=== PATIENT | female | born 1985 | race Hispanic/Latino ===

== ENCOUNTER 2019-02-09 18:07 | Emergency (ER) | payer SELFPAY ==
[2019-02-09 20:00] LABS: #Eosinphils 0.1 thou/uL (0.0-0.7); #Lymphocytes 3.3 thou/uL (1.20-3.40); #Monocytes 0.6 thou/uL (0.11-0.59); %Basophils 0.4 % (0.0-1.0); %Eosinophils 1.2 % (0.0-10.0); %Lymphocytes 27.4 % (21.0-51.0); %Monocytes 5.2 % (0.0-10.0); %Neutrophils 65.9 % (42.0-75.0); Mean Corpuscular HGB CONC 34.5 g/dL (32.0-36.0); Mean Corpuscular Hemoglobin 29.9 pg (27.0-31.0); Mean Corpuscular Volume 86.5 fL (78.0-98.0); Mean Platelet Volume 8.2 fL (7.4-10.4); Platelet Count 250 thou/uL (130-400); Red Blood Cell (RBC) Count 5.34 mill/uL (4.20-5.40); White Blood Cell (WBC) Count 12.1 thou/uL (4.8-10.8)
[2019-02-09 20:07] LABS: Bilirubin Negative (Negative); Blood, Urine Negative (Negative); Clarity Clear (Clear); Glucose, Urine (Dipstick) 500 mg/dL (Negative); Leukocyte Negative Leu/uL (Negative); Nitrite Negative (Negative); Protein, Urine (Dipstick) 10 mg/dL (Neg-Trace); Urobilinogen Normal mg/dL (Less than 2)
[2019-02-09 20:15] LABS: ALT (SGPT) 28 U/L (8-55); AST (SGOT) 12 U/L (5-34); Albumin 4.4 g/dL (3.5-5.0); Alkaline Phosphatase 62 U/L (40-110); Anion Gap 12 mmol/L (10-20); BUN (Urea Nitrogen) 9 mg/dL (7.0-18.7); Bilirubin, Total 1.5 mg/dL (0.2-1.2); Calc. Creatinine Clearance 0 mL/min (70-130); Calcium 9.4 mg/dL (7.8-10.44); Carbon Dioxide 23 mmol/L (22-29); Chloride 108 mmol/L (98-107); Estimated GFR-MDRD Greater than 90; Globulin 2.8 g/dL (2.4-3.5); Glucose 167 mg/dL (70-105); Potassium 3.5 mmol/L (3.5-5.1); Protein, Total 7.2 g/dL (6.0-8.3); Sodium 139 mmol/L (136-145)
--- NOTE | 2019-02-09 21:36 | ULT ---
EXAM: Pelvic ultrasound HISTORY: Positive test. COMPARISON: None TECHNIQUE: Multiple grayscale and color Doppler images were obtained in a transabdominal and transvag inal pelvic ultrasound. Spectral analysis of the Doppler waveforms of the ovaries were performed. FINDINGS: CERVIX: Multiple nabothian cysts in the cervix. UTERUS: Normal in size without focal abnormality. No intrauterine is seen. ENDOMETRIAL STRIPE: 15 mm. No free fluid is seen in the pelvis. RIGHT OVARY: Normal flow without focal mass. LEFT OVARY: Normal flow without focal mass. IMPRESSION: No evidence of intrauterine or ectopic .
[2019-02-09 22:32] LABS: Bilirubin Negative (Negative); Blood, Urine Negative (Negative); Clarity Clear (Clear); Glucose, Urine (Dipstick) 30 mg/dL (Negative); Leukocyte Negative Leu/uL (Negative); Nitrite Negative (Negative); Protein, Urine (Dipstick) 10 mg/dL (Neg-Trace); Urobilinogen Normal mg/dL (Less than 2)
[2019-02-10 21:21] LABS: Chlamydia by PCR Not Detected (NotDetected); GC by PCR Not Detected (NotDetected)
== END 2019-02-09 22:17 | disposition home or self-care (01) ==
LOC: ERS 18:07
DX: O20.0 Threatened abortion (principal); Z3A.13 13 weeks gestation of pregnancy
CPT/HCPCS: 36415; 76856; 80053; 81003; 84702; 85025; 86900; 86901; 87480; 87491; 87510; 87591; 87660

== ENCOUNTER → 2019-05-27 | Day surgery (SDC) | payer OTHER ==
[~2019-05-27] MED LIST: FLU VACC QS2019-20(6MOS UP)/PF 60 MCG/0.5 ML SYRINGE IM ONE; hydrALAZINE 20 MG/ML VIAL SLOW IVP PRN
[2019-05-27 02:09] VITALS: BP 120/75; TEMP 98.2; BMI 36.8
[2019-05-27 02:47] LABS: #Basophils 0.1 thou/uL (0.0-0.2); #Eosinphils 0.2 thou/uL (0.0-0.7); #Lymphocytes 3.3 thou/uL (1.20-3.40); #Monocytes 0.7 thou/uL (0.11-0.59); #Neutrophils 5.8 thou/uL (1.40-6.50); %Basophils 0.9 % (0.0-1.0); %Eosinophils 1.7 % (0.0-10.0); %Lymphocytes 32.5 % (21.0-51.0); %Neutrophils 57.9 % (42.0-75.0); Mean Corpuscular HGB CONC 36.2 g/dL (32.0-36.0); Mean Corpuscular Hemoglobin 32.5 pg (27.0-31.0); Mean Corpuscular Volume 89.8 fL (78.0-98.0); Mean Platelet Volume 8.1 fL (7.4-10.4); Platelet Count 164 thou/uL (130-400); RBC Distribution Width 13.1 % (11.5-14.5); Red Blood Cell (RBC) Count 3.99 mill/uL (4.20-5.40); White Blood Cell (WBC) Count 10.1 thou/uL (4.8-10.8)
[2019-05-27 03:08] LABS: ALT (SGPT) 21 U/L (8-55); AST (SGOT) 11 U/L (5-34); Albumin 3.4 g/dL (3.5-5.0); Alkaline Phosphatase 49 U/L (40-110); Anion Gap 11 mmol/L (10-20); BUN (Urea Nitrogen) 9 mg/dL (7.0-18.7); Bilirubin, Total 0.8 mg/dL (0.2-1.2); Calc. Creatinine Clearance 187 mL/min (70-130); Calcium 8.9 mg/dL (7.8-10.44); Carbon Dioxide 24 mmol/L (22-29); Chloride 109 mmol/L (98-107); Estimated GFR-MDRD Greater than 90; Globulin 2.7 g/dL (2.4-3.5); Glucose 101 mg/dL (70-105); Potassium 3.8 mmol/L (3.5-5.1); Protein, Total 6.1 g/dL (6.0-8.3); Sodium 140 mmol/L (136-145)
--- NOTE | 2019-05-27 03:15 | PDOC.EVN ---
Event Note - Event Note Event Note: labs wnl
--- NOTE | 2019-05-27 03:21 | PDOC.EVN ---
Event Note - Event Note Event Note: Verbal from tech: EDWAR GREEN for outpatient care. I have seen and evaluated the patient at bedside.
--- NOTE | 2019-05-27 07:33 | HP ---
TIME: 0219 hours. LOCATION: Labor and Delivery triage. CHIEF COMPLAINT: A 20-week with nausea and mild abdominal pain. HISTORY OF PRESENT ILLNESS: This patient is a patient of Dr. Herndon. The patient is a 33-year-old G1 with type 2 diabetes (Class B), who takes NovoLog and Levemir, who also has hypothyroidism, on Synthroid, who is 20 weeks and 1-day . Her EDC is October 12. She presents with mild chad-umbilical discomfort, but denies fever, vaginal bleeding, or leakage of fluid. She states that her has a "stomach infection" and has had nausea and vomiting as well. She denies any recent trauma or travel. REVIEW OF SYSTEMS: Complete review of systems was checked and is otherwise negative unless specified in the HPI. PAST MEDICAL HISTORY: Significant for type 2 diabetes and hypothyroidism. MEDICATIONS: 1. Levemir. 2. NovoLog. 3. Synthroid. PAST SURGICAL HISTORY: None. ALLERGIES: THE PATIENT DOES NOT HAVE ANY ALLERGIES STATED. SOCIAL HISTORY: Negative x3. PHYSICAL EXAMINATION: VITAL SIGNS: Her blood pressure is 120/75, pulse is 84, 100% O2 saturations on room air, and temperature is 98.2. Her BMI is 36.8. GENERAL: She is in no acute distress. ABDOMEN: Soft and nontender and it is nonsurgical. Doppler heart tones are in the 120s to 130s. Interventions ordered. I have ordered a right upper quadrant ultrasound, CBC, and CMP. ASSESSMENT: This is a 33-year-old G1 with diabetes and hypothyroidism with nonspecific abdominal discomfort. My index of suspicion for cholelithiasis or appendicitis is low at this time as the patient does not appear clinically ill. Nonetheless, I have ordered a right upper quadrant ultrasound to rule out any gallbladder issues and laboratory data to look for any overt abnormalities. PLAN: 1. Await tests as described. 2. No evidence of complication at this time. 3. Do not suspect acute surgical issue at this time. 4. Await test. Job ID: [id number] [facility]
--- NOTE | 2019-05-27 08:02 | ULT ---
Exam: Right upper quadrant ultrasound: HISTORY: Abdominal pain in a patient with 21 week . COMPARISON: None FINDINGS: Liver: Borderline enlarged measuring 18 cm in craniocaudal dimensions. Gallbladder: No evidence of gallbladder calculi, gallbladder wall thickening, or pericholecystic flui d. Common bile duct: The common duct is normal in caliber measuring 0.5 cm in diameter. Pancreas: Limited visualized portions of the pancreas demonstrate a normal sonographic appearance. Right kidney: Right kidney demonstrates a normal sonographic appearance. The right kidney measures 1 1.9 cm in length. IVC: The visualized IVC demonstrates a normal sonographic appearance. IMPRESSION: 1. Enlargement of liver in craniocaudal dimensions. 2. No gallbladder calculi are seen, and the common duct is normal in caliber.
== END ==
LOC: L&D/OP 01:19
PROVIDERS: ATTEND Family Medicine
DX: O21.2 Late vomiting of pregnancy (principal); O99.89 Other specified diseases and conditions complicating pregnancy, childbirth and the puerperium; R10.33 Periumbilical pain; O99.282 Endocrine, nutritional and metabolic diseases complicating pregnancy, second trimester; E03.9 Hypothyroidism, unspecified; O24.112 Pre-existing type 2 diabetes mellitus, in pregnancy, second trimester; E11.8 Type 2 diabetes mellitus with unspecified complications; Z3A.20 20 weeks gestation of pregnancy; Z79.4 Long term (current) use of insulin; Z79.899 Other long term (current) drug therapy
CPT/HCPCS: 36415; 76705; 80053; 85025

== ENCOUNTER 2019-06-03 08:32 | Outpatient (CLI) | payer OTHER ==
--- NOTE | 2019-06-03 09:50 | ULT ---
OB ULTRASOUND: Date: 06/03/2019 HISTORY: Size and dates. FINDINGS: Real-time imaging of the pelvis shows a single, viable intrauterine , which is in a breech p resentation. Placenta is anterior. There is no evidence of previa. Amniotic fluid is adequate for thi s stage of . The amniotic fluid index is calculated at 13.6. Review of anatomy showed no abnormalities detected. Head, cerebellum, stomach, kidneys, cord in sertion, bladder, spine, extremities, 3 vessel cord, and cord insertion were all visualized. A 4 naseem fiona heart is somewhat difficult to visualize, but there does appear to be a 4 chamber heart present. heart rate is 150 bpm. measurements are as follows: BPD: 5.0 cm, 21 weeks/1 day HC: 18.2 cm, 20 weeks/5 days AC: 16.5 cm, 21 weeks/4 days FL: 3.5 cm, 21 weeks/1 day IMPRESSION: 1. Single, viable intrauterine in breech presentation. Overall measurements corresponding to a gestational age of 21 weeks and 1 day. Estimated date of delivery is 10/13/2019. 2. Placenta which is anterior in location and without evidence of previa. 3. Cervical canal length is somewhat difficult to assess, but is approximately 3.0 cm. POS: [facility]
== END 2019-06-03 08:33 | disposition home or self-care (01) ==
LOC: BICULT 08:32
PROVIDERS: ATTEND Family Medicine
DX: O24.112 Pre-existing type 2 diabetes mellitus, in pregnancy, second trimester (principal); E11.9 Type 2 diabetes mellitus without complications; O32.1XX0 Maternal care for breech presentation, not applicable or unspecified; Z3A.21 21 weeks gestation of pregnancy
CPT/HCPCS: 76805

== ENCOUNTER 2019-08-15 02:41 | Day surgery (SDC) | payer OTHER ==
[2019-08-15] MEDS ORDERED: hydrALAZINE 20 MG/ML VIAL SLOW IVP PRN (03:41)
[2019-08-15 04:46] LABS: Bacteria/HPF 1+ HPF (None Seen); Bilirubin Negative (Negative); Blood, Urine Negative (Negative); Clarity Extra Turbid (Clear); Glucose, Urine (Dipstick) Normal (Negative); Leukocyte 500 Leu/uL (Negative); Nitrite Negative (Negative); Protein, Urine (Dipstick) 30 mg/dL (Neg-Trace); Squamous Epithelial 21-50 HPF (0-3); Transitional Epithelial 0-3 HPF (None Seen); WBC/HPF Greater than 50 HPF (0-3)
--- NOTE | 2019-08-15 04:57 | CON ---
DATE OF CONSULTATION: 08/15/2019 PRIMARY OB: Seymour Herndon MD CHIEF COMPLAINT: Pelvic pain. HISTORY OF PRESENT ILLNESS: The patient is a 34-year-old G1, P0 female with an intrauterine at 31 weeks and 4 days, presenting to Labor and Delivery with complaints of pelvic pressure and pain and frequent urination. The patient reports that these symptoms occurred ever since she had a 3D ultrasound done and at a local ultrasound shop to get pictures for her baby shower. She reports that the tech used a lot of pressure down in her lower pelvis in an effort to get good pictures and doing so she feels as concern that her bladder was injured. She denies uterine contractions. She denies vaginal bleeding or leakage of fluid or change in her discharge. She reports urinary frequency. The patient reports that she was awoken at night from sleep because of the discomfort that she has been feeling. She notices it gets worse when she is trying to roll from one side to the other while in bed. She denies any worsening sensations with getting out of bed or walking or any other activities. The patient denies any symptoms prior to this appointment that she had. She denies fever, headache, chest pain, shortness of breath, nausea, vomiting, diarrhea, constipation, hip problems, knee problems, muscle weakness. She denies any new rashes. Again, vaginal bleeding, leakage of fluid. She does report urinary frequency. PAST MEDICAL HISTORY: Hypothyroidism and diabetes. PAST SURGICAL HISTORY: Negative. ALLERGIES: NO KNOWN DRUG ALLERGIES. MEDICATIONS: Levothyroxine and insulin. SOCIAL HISTORY: Denies drug, alcohol, tobacco use. OB LABS: Unavailable at time of dictation. REVIEW OF SYSTEMS: Per HPI. PHYSICAL EXAMINATION: VITAL SIGNS: Blood pressure 133/68, pulse of 107, respiratory rate 15, temperature 198.2. GENERAL: She appears to be in no acute distress. She is alert, oriented, cooperative, and pleasant to interact with. HEENT: Head, normocephalic and atraumatic. LUNGS: Clear to auscultation bilaterally. HEART: Has regular rate and rhythm. ABDOMEN: Gravid and soft. She has no tenderness to palpation in her upper abdomen or mid abdomen. She does have significant tenderness with elevation of the uterus down in her lower right pelvis and in her lower left, but worse in her right and some suprapubic tenderness to palpation. EXTREMITIES: Nontender, nonedematous. Vulva is without masses, lesions, or erythema. Cervix is closed and thick, but again reproducing her tenderness during the exam. DIAGNOSTIC STUDIES: heart tracing shows the fetus with a baseline in the 140s with moderate long-term variability, positive 15 x 15 accelerations, no decelerations. Monitoring was difficult due to maternal habitus. Urinalysis has been sent. The tocometer is not showing any evidence of contractions. ASSESSMENT AND PLAN: The patient is a 34-year-old G1, P0 female with an intrauterine at 31 weeks, likely experiencing musculoskeletal pains of . We discussed this to the mechanics of how she described the ultrasound procedure and by history and physical exam is consistent with ligament strain there on the right side of the uterus. We did senior living sales counselor that this pain may worsen before it gets better. Recommended Tylenol, heating pad to the area, the of the belly band or belt may help in reducing her discomfort at present. We discussed that may resolve within a few days or up to a few weeks given the baseline level of strain with the . Fetus has a category 1 tracing and reactive NST. No evidence of labor on the tocometer. Once the urinalysis is back, patient will be discharged home and has been given labor precautions. Her next appointment is in about 2 weeks. We have counseled her to call her doctor on Saturday to give him an update and see if she needs to come in sooner. Job ID: [id number]
[2019-08-15 05:13] LABS: Bilirubin Negative (Negative); Blood, Urine Negative (Negative); Clarity Turbid (Clear); Glucose, Urine (Dipstick) Normal (Negative); Leukocyte 500 Leu/uL (Negative); Nitrite Negative (Negative); Protein, Urine (Dipstick) Negative (Neg-Trace); RBC/HPF 0-3 HPF (0-3); Urobilinogen Normal mg/dL (Less than 2); WBC/HPF 21-50 HPF (0-3)
[2019-08-15 05:16] LABS: Bacteria/HPF 1+ HPF (None Seen)
== END 2019-08-15 05:30 | disposition home or self-care (01) ==
LOC: L&D/OP 02:41
PROVIDERS: ATTEND Family Medicine
DX: O99.89 Other specified diseases and conditions complicating pregnancy, childbirth and the puerperium (principal); R10.2 Pelvic and perineal pain; R35.0 Frequency of micturition; O24.313 Unspecified pre-existing diabetes mellitus in pregnancy, third trimester; E11.9 Type 2 diabetes mellitus without complications; O99.283 Endocrine, nutritional and metabolic diseases complicating pregnancy, third trimester; E03.9 Hypothyroidism, unspecified; Z3A.31 31 weeks gestation of pregnancy; Z79.4 Long term (current) use of insulin; Z79.899 Other long term (current) drug therapy
CPT/HCPCS: 81001

== ENCOUNTER 2019-08-28 23:48 | Day surgery (SDC) | payer OTHER ==
[2019-08-29] MEDS ORDERED: hydrALAZINE 20 MG/ML VIAL SLOW IVP PRN (01:26)
--- NOTE | 2019-08-29 03:48 | PDOC.FPROB ---
FMR OB H&P: HPI - History of Present Illness Chief Complaint: Decreased movement Indentification: 34 year old at 33.4 wks History of Present Illness: 34 year old at 33.4 wks presents with decreased movement. Patient states that she only noted 3 movements in last 2 hours. She tried drinking juice and moving around without any success. She has type II DM diagnosed a year ago. She was on metformin prior to , but she was started on levemir during for better BG control. Her BG has been at goal per patient. Patient also has history of hypothyroidism which is being treated. Patient denies N/V, chest pain, cough, congestion, shortness of breath, vaginal bleeding, vaginal discharge, LoF, or contractions. 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: Denies history of STD's or abnormal Pap smear - Surgical History Sx History: Denies - Social History Social History: Denies alcohol, tobacco, or drug use - Family History Family History: Denies significant family history FMR OB H&P: Medications - Current Home Medications: Medication Instructions Recorded Confirmed Type Insulin Aspart [Novolog] 7 unit SQ TID 05/27/19 08/29/19 History Insulin Detemir [Levemir] 10 units SQ BID 05/27/19 08/29/19 History Levothyroxine Sodium [Synthroid] 75 mcg PO DAILY 05/27/19 08/29/19 History Pnv No.95/Ferrous Fum/Folic AC 1 each PO DAILY 05/27/19 08/29/19 History [ Vitamin Tablet] Allergies/Adverse Reactions: Allergies Allergy/AdvReac Type Severity Reaction Status Date / Time No Known Allergies Allergy Verified 08/15/19 03:01 FMR OB H&P: ROS - Review of Systems General: denies: fever/chills, weight/appetite/sleep changes, night sweats Eyes: denies: vision changes, scotomas ENT: denies: nasal congestion, rhinorrhea, sore throat Cardiovascular: denies: chest pain, palpitation, edema Respiratory: denies: cough, congestion, shortness of breath Gastrointestinal: denies: abdominal pain, nausea, vomiting, diarrhea Genitourinary (Female): denies: dysuria, vaginal discharge, vaginal pain, vaginal bleeding Musculoskeletal: denies: pain, stiffness Neurologic: denies: numbness, syncope, seizures Integumentary: denies: itching, rash Psychological: denies: depression, anxiety FMR OB H&P: Vital Signs - Maternal Vital signs: BP <140/90 Afebrile See Centricity for specific vitals. Vitals reviewed and WNL. - Heart Tones Baseline: 135 Variability: moderate Acceleration: present Deceleration: absent Category: category 1 [place] contractions every: None FMR OB H&P: Physical Exam - Physical Exam General: NAD, awake, alert and oriented HEENT: MMM, grossly normal vision, grossly normal hearing Heart: RRR, no murmurs/rubs/gallops General: CTAB, no respiratory distress Abdomen: soft, gravid, non-tender Musculoskeletal: pulses present, FROM in all four extremities Neurological: no tremor, no focal deficit Skin: no rash, capillary refill <2 seconds Lymphatic: no unusual bruising or bleeding, no purpura Psychiatric: intact recent and remote memory, good judgement and insight, normal mood and affect FMR OB H&P: A/P - Problem List (1) Intrauterine Status: Acute Code(s): Z34.90 - ENCNTR FOR SUPRVSN OF NORMAL , UNSP, UNSP TRIMESTER (2) Type 2 diabetes mellitus affecting in third trimester, antepartum Status: Acute Code(s): O24.113 - PRE-EXISTING TYPE 2 DIABETES, IN , THIRD TRIMESTER (3) Hypothyroidism affecting in third trimester Status: Acute Code(s): O99.283 - ENDO, NUTRITIONAL AND METAB DISEASES COMP PREG, THIRD TRI; E03.9 - HYPOTHYROIDISM, UNSPECIFIED (4) Decreased movement Status: Acute Code(s): O36.8190 - DECREASED MOVEMENTS, UNSP TRIMESTER, UNSP Qualifiers: Fetus number: single or unspecified fetus Disposition: 34 year old at 33.4 wks Intrauterine , decreased movement - NST reactive, patient now feeling a lot of movement - Patient had NST done last which is reassuring. She is getting weekly testing done and has repeat this coming - Type II DM well controlled on metformin, levemir, novolog - No signs of distress - Continue kick counts Type II DM - Well controlled on metformin, levemir, and novolog - BG at goal per patient report Hypothyroidism - Continue levothyroxine Dispo: NST reactive and patient now feeling movement. Continue kick counts. Patient has follow up testing on . Return precautions provided. Discussion: Date/Time: 08/29/19 5923 This H&P was discussed with Dr. Angeles who agrees with the above documentation and plan. Signature: Aysha Moore, DO PGY-3 Addendum - Attending - Attending Attestation Date/Time: 08/29/19 1390 I personally evaluated the patient and discussed the management with Dr. Moore. I agree with the History, Examination, Assessment and Plan documented above.
== END 2019-08-29 01:30 | disposition home or self-care (01) ==
LOC: L&D/OP 23:48
PROVIDERS: ATTEND Family Medicine
DX: O36.8130 Decreased fetal movements, third trimester, not applicable or unspecified (principal); O24.113 Pre-existing type 2 diabetes mellitus, in pregnancy, third trimester; E11.9 Type 2 diabetes mellitus without complications; O99.283 Endocrine, nutritional and metabolic diseases complicating pregnancy, third trimester; E03.9 Hypothyroidism, unspecified; Z3A.33 33 weeks gestation of pregnancy; Z79.4 Long term (current) use of insulin; Z79.899 Other long term (current) drug therapy

== ENCOUNTER 2019-09-01 06:47 | Outpatient (CLI) | payer OTHER ==
--- NOTE | 2019-09-01 08:03 | ULT ---
EXAM: OB ultrasound Umbilical artery Doppler evaluation COMPARISON: 06/03/2019 HISTORY: female. Evaluate size, dates, and anatomy. TECHNIQUE: Multiplanar grayscale and color Doppler transabdominal sonographic images are obtained. FINDINGS: There is a single intrauterine gestation in cephalic presentation. Cardiac Doppler demonstr ates heart tones with a heart rate of 152 beats per minute. The placenta is located anteriorly without evidence of placenta previa. Amniotic fluid index is at the lower limits of normal measuring 8.37 cm.. biometry measurements: BPD 8.61 cm -- 34 weeks 6 days HC 30.47 cm -- 34 weeks AC 30.67 cm -- 34 weeks 5 days FL 6.47 cm -- 33 weeks 3 days The estimated gestational age by ultrasound is 34 weeks 2 days with an CLAY on10/11/2019. Gestational ag e by the last menstrual period is 34 weeks. The estimated weight by ultrasound is 2376 g (5 pounds, 4 ounces). This represents 50 percentil e for weight. There has been interval growth when compared to prior study on 06/03/2019 Umbilical artery Doppler evaluation: At level of the placenta-peak systolic velocity 72.4 cm/s, end-diastolic velocity 26.6 cm/s, resistiv e index 0.632, pulsatility index 0.885 Mid umbilical cord-peak systolic velocity 93.7 cm/s, end-diastolic velocity 35.1 cm/s, resistive inde x 0.625, pulsatility index 1.046 At level of the fetus-peak systolic velocity 4.1 cm/s, end-diastolic velocity 26.6 cm/s, resistive in dex 0.684, pulsatility index 1.177 This examination was not performed for evaluation of the anatomical structures. IMPRESSION: 1. Single intrauterine gestation in cephalic presentation with heart tones documented. Estimat ed gestational age by ultrasound is 34 weeks 2 days. 2. Estimated weight is 2376 g (5 pounds, 4 ounces). 3. Amniotic fluid index is 8.37 centimeters. 4. Umbilical artery Dopplers as described above.
== END 2019-09-01 06:48 | disposition home or self-care (01) ==
LOC: BICULT 06:47
PROVIDERS: ATTEND Family Medicine
DX: O24.113 Pre-existing type 2 diabetes mellitus, in pregnancy, third trimester (principal); Z3A.34 34 weeks gestation of pregnancy
CPT/HCPCS: 76805; 93975

== ENCOUNTER 2019-09-10 17:02 | Day surgery (SDC) | payer OTHER ==
[2019-09-10 17:51] VITALS: BMI 41.7
[2019-09-10] MEDS ORDERED: hydrALAZINE 20 MG/ML VIAL SLOW IVP PRN (17:58)
--- NOTE | 2019-09-10 19:26 | ULT ---
ULTRASOUND PELVIS BIOPHYSICAL PROFILE: 09/10/19 HISTORY: 35-week nonreactive nonstress test on office. Diabetes. COMPARISON: Ultrasound 09/01/19. FINDINGS: Real time coffey scale, color Doppler and spectral analysis of the gravid uterus was performed. Amniotic fluid index measures 10 cm. Biophysical profile score is 8/8. position is vertex and t he placenta is anterior. heart rate documented at 157 beats per minute. IMPRESSION: Biophysical profile score of 8/8. POS: HOME
--- NOTE | 2019-09-10 19:29 | ER ---
DATE OF SERVICE: 09/10/2019 PRESENTING COMPLAINT: Was sent over by clinic at 35 weeks gestation with nonreactive NST. HISTORY OF PRESENT ILLNESS: Ms. Patel is a 34-year-old class B diabetic, who is on insulin and metformin. She is getting routine antepartum testing at Dr. Herndon's office and had an NST that was difficult to trace and was thought to be possibly nonreactive. She is sent over for further evaluation. 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 Blood type O positive, antibody negative. Pap negative. Rubella immune. VDRL nonreactive. Hepatitis B, GC, chlamydia negative. Group B strep not done. CLAY 10/12. MEDICAL HISTORY: Class B diabetes. PAST SURGICAL HISTORY: Denies. ALLERGIES: DENIES. MEDICATIONS: 1. Insulin. 2. Metformin. 3. vitamins. 4. Synthroid. SOCIAL HISTORY: Denies tobacco, alcohol, or IV drug abuse. FAMILY HISTORY: Noncontributory. REVIEW OF SYSTEMS: Noncontributory. PHYSICAL EXAMINATION: GENERAL: Obese female, in no acute distress. VITAL SIGNS: Temperature 98.4, respirations 18, blood pressure 128/72, and pulse 85. HEENT: Within normal limits. LUNGS: Clear to auscultation bilaterally. HEART: Regular rhythm. ABDOMEN: Soft, nontender. No rebound or guarding. PELVIC: Vulva without lesions. Vaginal exam deferred. EXTREMITIES: No clubbing, cyanosis, or edema. monitoring is carried out, where reactive heart rate tracing was noted for greater than 30 minutes. Biophysical profile was carried out 11/13. JUAN 10. Cephalic presentation. IMPRESSION: Reassuring antepartum testing and class B White's diabetic at 35 weeks gestation. PLAN: Discharge home, keep scheduled followup with Dr. Herndon. Job ID: [id number]
== END 2019-09-10 18:45 | disposition home or self-care (01) ==
LOC: L&D/OP 17:02
PROVIDERS: ATTEND Family Medicine
DX: O24.414 Gestational diabetes mellitus in pregnancy, insulin controlled (principal); Z3A.35 35 weeks gestation of pregnancy; Z79.4 Long term (current) use of insulin; Z79.899 Other long term (current) drug therapy
CPT/HCPCS: 76819; 99285

== ENCOUNTER 2019-09-16 15:37 | Outpatient (CLI) | payer OTHER | END 2019-09-16 15:38 | disposition home or self-care (01) | LOC: SCSLAB 15:37 | PROVIDERS: ATTEND Family Medicine | DX: Z01.812 Encounter for preprocedural laboratory examination (principal); Z11.59 Encounter for screening for other viral diseases | CPT/HCPCS: 87635; U0003 ==

== ENCOUNTER → 2019-09-17 | Day surgery (SDC) | payer OTHER ==
[~2019-09-17] MED LIST changes: -FLU VACC QS2019-20(6MOS UP)/PF 60 MCG/0.5 ML SYRINGE IM ONE
[2019-09-17 15:30] VITALS: BMI 42.7
--- NOTE | 2019-09-17 16:32 | PDOC.FPROB ---
FMR OB H&P: HPI - History of Present Illness Chief Complaint: testing Indentification: 34 year old at 36.2 wks History of Present Illness: 34 year old at 36.2 wks with pregestational presents from primary OB for testing. Patient with reactive NST in clinic. Patient denies vaginal bleeding, vaginal discharge, LoF, contractions. Endorses movement. Patient reports that DM well controlled. FBG <95. 2h PP BG <120. Taking 10 units of levemir in AM and PM and taking 7 units of novolog TID. Primary Care Physician: Yanick R OB H&P: Current - Care : 1 Para: 0 Gestational age: 36.2 wks Due date: 10/13/2019 FMR OB H&P: History - Past Medical History PMH: Type II DM on metformin and levemir/novolog Hypothyroidism - OB History OB History: Obesity Complicated by Type II DM and hypothyroidism - LEAD APPLICATION ARCHITECT History LEAD APPLICATION ARCHITECT History: Denies history of STD's or abnormal Pap smear - Surgical History Sx History: Denies - Social History Social History: Denies tobacco, alcohol, or drug use FMR OB H&P: Medications - Current Home Medications: Medication Instructions Recorded Confirmed Type Insulin Aspart [Novolog] 7 unit SQ TID 05/27/19 08/29/19 History Insulin Detemir [Levemir] 10 units SQ BID 05/27/19 08/29/19 History Levothyroxine Sodium [Synthroid] 75 mcg PO DAILY 05/27/19 08/29/19 History Pnv No.95/Ferrous Fum/Folic AC 1 each PO DAILY 05/27/19 08/29/19 History [ Vitamin Tablet] Allergies/Adverse Reactions: Allergies Allergy/AdvReac Type Severity Reaction Status Date / Time No Known Allergies Allergy Verified 08/15/19 03:01 FMR OB H&P: ROS - Review of Systems General: denies: fever/chills Eyes: denies: vision changes, double vision, scotomas ENT: denies: nasal congestion, rhinorrhea, sore throat Cardiovascular: denies: chest pain, palpitation, edema Gastrointestinal: denies: abdominal pain, nausea, vomiting, diarrhea Genitourinary (Female): denies: dysuria, vaginal discharge, vaginal pain, vaginal bleeding, contractions Musculoskeletal: denies: pain, stiffness, tenderness Neurologic: denies: numbness, syncope Integumentary: denies: itching, rash, lesions Psychological: denies: depression, anxiety FMR OB H&P: Vital Signs - Maternal Vital signs: BP 113/70 Pulse 83 Afebrile 98.4F RR 18 - Heart Tones Baseline: 140 Variability: moderate Acceleration: present Deceleration: absent Category: category 1 [place] contractions every: none FMR OB H&P: Physical Exam - Physical Exam General: NAD, awake, alert and oriented HEENT: MMM, grossly normal vision, grossly normal hearing Heart: RRR, pulses present General: no respiratory distress Abdomen: soft, gravid, non-tender Musculoskeletal: pulses present, FROM in all four extremities Neurological: no tremor, no focal deficit Skin: no rash, capillary refill <2 seconds Psychiatric: intact recent and remote memory, good judgement and insight, normal mood and affect - Pelvic Exam Presentation: Cephalic FMR OB H&P: A/P - Problem List (1) Intrauterine Current Visit: No Status: Acute Code(s): Z34.90 - ENCNTR FOR SUPRVSN OF NORMAL , UNSP, UNSP TRIMESTER (2) Hypothyroidism affecting in third trimester Current Visit: No Status: Acute Code(s): O99.283 - ENDO, NUTRITIONAL AND METAB DISEASES COMP PREG, THIRD TRI; E03.9 - HYPOTHYROIDISM, UNSPECIFIED (3) Type 2 diabetes mellitus affecting in third trimester, antepartum Current Visit: No Status: Acute Code(s): O24.113 - PRE-EXISTING TYPE 2 DIABETES, IN , THIRD TRIMESTER Disposition: Patient presents for testing sIUP - at 36.2 wks - complicated by pregestational DM and hypothyroidism - NST reactive w/ mod variability and no decels, BPP 8/8 - mIOL scheduled for 09/21 Pregestational DM - well controlled on levemir and novolog - Continue QID monitoring - testing reassuring Hypothyroidism - Continue current medications Dispo: Discharge home. Labor precautions provided. Return on 09/21 for mIOL. Discussion: Date/Time: 09/17/19 1630 This H&P was discussed with Dr. Sow who agrees with the above documentation and plan. Signature: Aysha Moore, PGY-3
--- NOTE | 2019-09-17 16:32 | ULT ---
Sonographic biophysical profile exam Obstetric sonogram Limited HISTORY: distress. Third trimester gestation. FINDINGS: Single intrauterine gestation in cephalic presentation. Grade 1 placenta is anterior. No ev idence of previa or abruption. heart motion at 143 bpm. Amniotic fluid index 14.5. Good tone, gross movements, and breathing movements were demonstrate d. IMPRESSION : Sonographic biophysical profile score 8/8.
== END ==
LOC: L&D/OP 15:08
DX: O24.113 Pre-existing type 2 diabetes mellitus, in pregnancy, third trimester (principal); O99.283 Endocrine, nutritional and metabolic diseases complicating pregnancy, third trimester; E03.9 Hypothyroidism, unspecified; Z3A.36 36 weeks gestation of pregnancy; Z79.82 Long term (current) use of aspirin
CPT/HCPCS: 59025; 76819; 99282

== ENCOUNTER 2019-09-21 17:40 | Inpatient (IN) | payer OTHER ==
[~2019-09-21 17:40] MED LIST changes: +Bupivacaine 0.25% HCL 30 ML VIAL ONE; +Lidocaine 2% MPF 10 ML AMP (For Epidural Use) ONE; -hydrALAZINE 20 MG/ML VIAL SLOW IVP PRN
[2019-09-21] MEDS: Lactated Ringer's 1,000 ML IV SCH ×2 (18:20→23:57)
[2019-09-21 18:43] VITALS: BMI 42.7
[2019-09-21] MEDS ORDERED: NS / Oxytocin 40 units/1000ml 1,000 ML IV PRN (18:44)
[2019-09-21] MEDS ORDERED: Acetaminophen 500 MG TAB PO PRN (18:44)
[2019-09-21] MEDS ORDERED: Ondansetron PF 4 MG/2 ML Vial IVP PRN (18:44)
[2019-09-21] MEDS ORDERED: Ibuprofen 800 MG TAB PO PRN (18:44)
[2019-09-21] MEDS ORDERED: Promethazine HCl 25 MG/ML VIAL IM PRN (18:44)
[2019-09-21] MEDS ORDERED: hydrALAZINE 20 MG/ML VIAL SLOW IVP PRN (18:44)
[2019-09-21] MEDS ORDERED: Lidocaine 1% (PF) 30 ML VIAL SC PRN (18:44)
[2019-09-21] MEDS ORDERED: NS w/ Oxytocin 10 units 500 ML IV SCH (18:45)
[2019-09-21 19:00] LABS: Hemoglobin 13.3 g/dL (12.0-16.0); Mean Corpuscular HGB CONC 34.6 g/dL (32.0-36.0); Mean Corpuscular Hemoglobin 30.9 pg (27.0-31.0); Mean Corpuscular Volume 89.3 fL (78.0-98.0); Mean Platelet Volume 9.1 fL (7.4-10.4); Platelet Count 182 thou/uL (130-400); RBC Distribution Width 13.8 % (11.5-14.5); White Blood Cell (WBC) Count 8.8 thou/uL (4.8-10.8)
[2019-09-21] MEDS ORDERED: Misoprostol 100 MCG TAB VAG SCH (19:15)
[2019-09-21 19:37] LABS: Syphilis Antibody Nonreactive (Nonreactive); Syphilis Antibody Index 0.03 S/CO (<1.00 Non-Reactive)
[2019-09-21 19:38] LABS: HBSAg Index 0.16 S/CO (0-0.99); Hep B Surf Ag Non-Reactive S/CO (NonReactive)
[2019-09-21] MEDS: Insulin Glargine 5 UNITS in Pre-Filled Syringe SC SCH (21:19)
[2019-09-22] MEDS: Butorphanol Tartrate 1 MG/ML VIAL SLOW IVP PRN ×4 (00:04→07:26)
[2019-09-22] MEDS: Misoprostol 100 MCG TAB VAG SCH ×4 (02:11→16:00)
[2019-09-22] MEDS: Lactated Ringer's 1,000 ML IV SCH ×3 (08:00→23:02)
[2019-09-22] MEDS ORDERED: Fentanyl 4 mcg/Bup 0.1% Cadd 100 ML ONE (09:14)
[2019-09-22] MEDS ORDERED: Lactated Ringer's 500 ML IV PRN ×2 (10:48→11:13)
[2019-09-22] MEDS ORDERED: Acetaminophen 325 MG TAB PO PRN ×2 (10:48→11:13)
[2019-09-22] MEDS ORDERED: Naloxone HCl 0.4 mg/ml Vial IVP PRN ×4 (10:48→11:13)
[2019-09-22] MEDS ORDERED: EPHEDRINE 25 MG/5 ML SYRINGE SLOW IVP PRN ×2 (10:48→11:13)
[2019-09-22] MEDS ORDERED: Ondansetron PF 4 MG/2 ML Vial IVP PRN ×4 (10:48→21:36)
[2019-09-22] MEDS ORDERED: Promethazine HCl 25 MG/ML VIAL IM PRN ×3 (10:48→18:53)
[2019-09-22] MEDS ORDERED: diphenhydrAMINE 50 MG/ML VIAL IVP PRN ×3 (10:48→18:53)
[2019-09-22] MEDS ORDERED: Fentanyl 4 mcg/Bupivacaine 0.1% Cassette 100 ML EPIDURAL SCH ×2 (11:00→11:14)
[2019-09-22] MEDS ORDERED: Communication Order-Pharmacy FS SCH ×3 (11:00→19:00)
[2019-09-22] MEDS ORDERED: Metoclopramide HCl 10 MG/2 ML VIAL IVP PRN (12:47)
[2019-09-22] MEDS ORDERED: Azithromycin 500 MG in Sodium Chloride 0.9% 250 ML 250 ML IVPB SCH (16:45)
[2019-09-22] MEDS ORDERED: CEFAZOLIN 2 GM in Premix Bag 1 BAG IVPB SCH (17:00)
[2019-09-22] MEDS: Bicitra 30 ML UDCUP PO SCH (17:01)
[2019-09-22] MEDS ORDERED: Bupivacaine HCl 0.5%/Epinephrine 1:200,000/PF 30 ml Vial ONE (17:21)
[2019-09-22] MEDS ORDERED: Fentanyl 100 MCG/2 ML VIAL ONE (17:26)
[2019-09-22] MEDS ORDERED: MORPHINE 5 MG/10 ML PF VIAL ONE (17:26)
[2019-09-22] MEDS ORDERED: Oxytocin 10 UNITS/ML VIAL ONE (17:27)
[2019-09-22] MEDS ORDERED: Ondansetron PF 4 MG/2 ML Vial ONE (17:27)
[2019-09-22] MEDS ORDERED: PHENYLEPHRINE-NS 100 MCG/ML 10 ML SYRINGE ONE (17:27)
[2019-09-22] MEDS ORDERED: EPHEDRINE 25 MG/5 ML SYRINGE ONE (17:27)
[2019-09-22] MEDS ORDERED: PROPOFOL 20 ML ONE (17:47)
[2019-09-22] MEDS ORDERED: Succinylcholine Chloride 20 MG/ML 10 ml SYRINGE FS ONE (17:47)
[2019-09-22] MEDS ORDERED: Dexamethasone 4 mg/ml Vial ONE (18:16)
[2019-09-22] MEDS ORDERED: Ketorolac Tromethamine 30 MG/ML VIAL ONE (18:16)
[2019-09-22] MEDS ORDERED: HYDROmorphone 2 MG/ML VIAL SLOW IVP PRN (18:32)
[2019-09-22] MEDS ORDERED: Ondansetron HCl/PF 4 MG/2 ML Vial IVP PRN (18:32)
[2019-09-22] MEDS ORDERED: L&D-Morphine 4 MG/ML VIAL SLOW IVP PRN (18:32)
[2019-09-22] MEDS ORDERED: Meperidine HCl/PF 25 MG/ML VIAL SLOW IVP PRN (18:32)
[2019-09-22] MEDS ORDERED: Ketorolac Tromethamine 30 MG/ML VIAL IVP SCH (18:45)
[2019-09-22] MEDS ORDERED: fentaNYL Citrate/PF 2,000 MCG in Sodium Chloride 0.9% 60 ML IV PRN (18:53)
[2019-09-22] MEDS ORDERED: diphenhydrAMINE 25 MG CAP PO PRN ×2 (18:53→21:36)
[2019-09-22] MEDS ORDERED: diphenhydrAMINE 50 MG/ML VIAL IM PRN (18:53)
[2019-09-22] MEDS ORDERED: Naloxone HCl 0.4 mg/ml Vial IV PRN (18:53)
[2019-09-22] MEDS ORDERED: Zolpidem Tartrate 5 MG TAB PO PRN (18:53)
[2019-09-22] MEDS ORDERED: Meperidine HCl/PF 25 MG/ML VIAL ONE (19:24)
[2019-09-22] MEDS ORDERED: hydrALAZINE 20 MG/ML VIAL SLOW IVP PRN ×3 (21:10→21:36)
[2019-09-22] MEDS ORDERED: Lanolin Ointment 7 GM TUBE TOP PRN (21:36)
[2019-09-22] MEDS ORDERED: HYDROcodone/Acetaminophen 5/325 mg Tablet PO PRN ×2 (21:36)
[2019-09-22] MEDS ORDERED: NS / Oxytocin 40 units/1000ml 1,000 ML IV SCH (21:36)
[2019-09-22] MEDS ORDERED: Meperidine HCl/PF 25 MG/ML VIAL IM PRN (21:36)
[2019-09-22] MEDS ORDERED: Bisacodyl 10 MG SUPP PR PRN (21:36)
[2019-09-23] MEDS: Ketorolac Tromethamine 30 MG/ML VIAL IVP SCH ×4 (01:28→16:13)
[2019-09-23] MEDS: Docusate Calcium (SURFAK) 240 MG CAP PO SCH ×3 (02:04→21:02)
[2019-09-23] MEDS: Ferrous Sulfate 325 MG TAB PO SCH ×3 (02:04→22:43)
[2019-09-23 06:05] LABS: Hemoglobin 11.5 g/dL (12.0-16.0); Mean Corpuscular HGB CONC 34.5 g/dL (32.0-36.0); Mean Corpuscular Hemoglobin 30.8 pg (27.0-31.0); Mean Corpuscular Volume 89.3 fL (78.0-98.0); Mean Platelet Volume 8.8 fL (7.4-10.4); Platelet Count 164 thou/uL (130-400); RBC Distribution Width 13.7 % (11.5-14.5); Red Blood Cell (RBC) Count 3.73 mill/uL (4.20-5.40); White Blood Cell (WBC) Count 13.6 thou/uL (4.8-10.8)
[2019-09-23] MEDS: Lactated Ringer's 1,000 ML IV SCH (07:20)
[2019-09-23] MEDS: Prenatal Vitamin 1 TAB PO SCH (07:46)
[2019-09-23] MEDS ORDERED: Adacel (T-DAP) 0.5 ML SYRINGE IM ONE (09:00)
[2019-09-23] MEDS: Insulin Glargine 5 UNITS in Pre-Filled Syringe SC SCH (10:40)
[2019-09-23] MEDS: Misoprostol 100 MCG TAB VAG SCH (10:40)
[2019-09-23] MEDS: Simethicone Chewable 80 MG TAB PO PRN (12:07)
[2019-09-23] MEDS: HYDROcodone/Acetaminophen 5/325 mg Tablet PO PRN ×3 (12:08→21:02)
[2019-09-23] MEDS: Ibuprofen 800 MG TAB PO SCH (22:00)
[2019-09-24] MEDS: HYDROcodone/Acetaminophen 5/325 mg Tablet PO PRN ×5 (05:14→22:29)
[2019-09-24] MEDS: Ibuprofen 800 MG TAB PO SCH ×3 (05:15→20:55)
[2019-09-24] MEDS: Docusate Calcium (SURFAK) 240 MG CAP PO SCH ×2 (08:26→20:54)
[2019-09-24] MEDS: Prenatal Vitamin 1 TAB PO SCH (08:26)
[2019-09-24] MEDS: Ferrous Sulfate 325 MG TAB PO SCH ×2 (08:26→20:56)
[2019-09-24] MEDS: Simethicone Chewable 80 MG TAB PO PRN (11:21)
[2019-09-24] MEDS: metFORMIN 500 MG TAB PO SCH (17:56)
--- NOTE | 2019-09-24 19:49 | OP ---
DATE OF PROCEDURE: 09/22/2019 RESIDENT SURGEON: Dr. Aysha Moore. ATTENDING SURGEON: Dr. Seymour Herndon. PROCEDURE PERFORMED: Primary low transverse section. PREOPERATIVE DIAGNOSES: 1. Term intrauterine . 2. Arrest of dilation. 3. Pregestational diabetes type 2, well controlled with insulin. 4. Morbid obesity. POSTOPERATIVE DIAGNOSES: 1. Term intrauterine , delivered. 2. Primary low transverse section. 3. Pregestational diabetes type 2, well controlled with insulin. 4. Morbid obesity. ANESTHESIA: Spinal. INDICATIONS: This is a 34-year-old, G1, P0, at 37 weeks' gestation, who presented for medically indicated induction of labor for type 2 diabetes, well controlled on insulin. Induction of labor was initiated with Cytotec. Despite adequate contractions in a time period of at least 4 hours, the patient did not make any cervical change and stayed at 4-cm dilation. Decision was made to proceed with primary low-transverse section. DESCRIPTION OF PROCEDURE: After risks, benefits, and alternatives were explained to the patient, she gave informed consent. Preoperative antibiotics included cefazolin 2 g IV. The patient was taken to the operating room. Of note, she did have an epidural, which was not effective and therefore, general anesthesia was performed. The patient was placed in the supine position with a left tilt and prepped and draped in usual sterile fashion. A Pfannenstiel incision was made with a scalpel and carried down to the level of fascia, which was sharply nicked. The fascial cut was extended bilaterally with Newton scissors. The inferior and superior edges of the cut fascial edges were elevated with Carli clamps. Underlying rectus muscles were sharply and bluntly dissected free. The recti were divided digitally and retracted manually. Peritoneum was entered bluntly and retracted manually. Bladder blade was placed. A low transverse score was made with a scalpel, and the uterus was entered in the midline with a scalpel. Clear fluid was seen. Hysterotomy was extended manually. The infant was noted to be vertex and easily delivered by fundal pressure. Mouth and nares were bulb suctioned. Cord was clamped and cut and grossly normal female was handed to awaiting nurse. Cord blood was obtained. Placenta was manually extracted, found to be intact with 3-vessel cord and discarded. The hysterotomy was closed with a running locking #1 Monocryl suture. There was a small left-sided uterine extension, which was repaired in the usual fashion with the hysterotomy closure. After this, hemostasis was noted. The peritoneum was then closed using 3-0 Vicryl in a running nonlocking fashion. The fascia was closed with running nonlocking 0 PDS suture. The subcutaneous tissue was irrigated with saline and bleeders were cauterized. The subcutaneous tissue was brought together using 2-0 plain gut in simple interrupted sutures. The skin was then approximated with ronald, and pressure dressing was placed. All counts were correct. The patient tolerated the procedure well and was taken to recovery room in stable condition. ESTIMATED BLOOD LOSS: 690 mL. COMPLICATIONS: None. SPECIMENS: Cord blood sent to lab for blood type. FINDINGS: Grossly normal female with Apgars of 8 and 8 at one and five minutes respectively. Grossly normal placenta with 3-vessel cord discarded. DRAINS: Carranza to gravity, draining clear urine. Job ID: [id number] MTDD
[2019-09-24] MEDS ORDERED: Ibuprofen 800 MG TAB PO SCH (22:00)
[2019-09-25] MEDS: Ketorolac Tromethamine 30 MG/ML VIAL IVP SCH (02:42)
[2019-09-25] MEDS: Ibuprofen 800 MG TAB PO SCH ×2 (05:09→13:41)
[2019-09-25] MEDS: Ferrous Sulfate 325 MG TAB PO SCH (08:04)
[2019-09-25 08:13] VITALS: BP 120/67; TEMP 97.9
[2019-09-25] MEDS: Docusate Calcium (SURFAK) 240 MG CAP PO SCH (08:24)
[2019-09-25] MEDS: Prenatal Vitamin 1 TAB PO SCH (08:24)
[2019-09-25] MEDS: HYDROcodone/Acetaminophen 5/325 mg Tablet PO PRN ×3 (08:24→16:24)
[2019-09-25] MEDS: metFORMIN 500 MG TAB PO SCH (08:24)
--- NOTE | 2019-09-28 04:17 | PQF ---
Ivanna Patel ROLAND R MD [id number] CLINICAL DOCUMENTATION CLARIFICATION FORM: POST DISCHARGE Addendum to original discharge summary date: ____ Late entry note date: __ DATE:09/28/2019 ATTN: Seymour Soriano Please exercise your independent, professional judgment in responding to the clarification form. Clinical indicators are provided on the bottom of this form for your review Please check appropriate box(s): [ ] Gestational Hypertension [ ] Pre-existing Hypertension [ ] Elevated BP only with no dx of Hypertension [ ] Other diagnosis [ ] Unable to determine For continuity of documentation, please document condition throughout progress notes and discharge summary. Thank You. CLINICAL INDICATORS - SIGNS / SYMPTOMS / LABS Vital signs 09/21 BP 147/90; 155/82, Pulse 92; 89, Resp 18, Temp 98.6 Vital signs 09/22 BP 142/72; 129/72, Pulse 95, 91, Resp 20, temp 98.3 RISK FACTORS Scanned H&P 37 weeks gestation Scanned H&P DM type 2 Scanned H&P Morbid obesity Scanned H&P Family hx of HTN TREATMENTS: JUN 11 IV Hydralazine 5mg JUN 11 IVF Lactated Ringer 1L Vital signs monitoring ordered 09/21 (This form is maintained as a part of the permanent medical record) 2014 [employer] All Rights Reserved [email or web address]
== END 2019-09-25 17:00 | disposition home or self-care (01) | DRG 788 ==
LOC: L&D-LIB 17:40 → L&D 09-22 20:15 → 3SW 09-22 21:48
PROVIDERS: ADMIT Family Medicine; ATTEND Family Medicine
PROC: 10907ZC Drainage of Amniotic Fluid, Therapeutic from Products of Conception, Via Natural or Artificial Opening (ICD-10-PCS; 2019-09-21)
PROC: 3E0P7VZ Introduction of Hormone into Female Reproductive, Via Natural or Artificial Opening (ICD-10-PCS; 2019-09-21)
PROC: 10D00Z1 Extraction of Products of Conception, Low, Open Approach (ICD-10-PCS; principal; 2019-09-22)
DX: O24.12 Pre-existing type 2 diabetes mellitus, in childbirth (principal); E11.9 Type 2 diabetes mellitus without complications; O99.214 Obesity complicating childbirth; E66.01 Morbid (severe) obesity due to excess calories; O62.0 Primary inadequate contractions; Z37.0 Single live birth; Z3A.37 37 weeks gestation of pregnancy; Z79.4 Long term (current) use of insulin
CPT/HCPCS: 36415; 36416; 51702; 85027; 86780; 86850; 86900; 86901; 87340; J0360; J0595; J0670; J0690; J1100; J1815; J1885; J2001; J2175; J2274; J2405; J2550; J2590; J2704; J3010; J3490; S0020

== ENCOUNTER 2019-09-27 10:17 | Emergency (ER) | payer OTHER ==
[2019-09-27] MEDS ORDERED: HYDROcodone/Acetaminophen 10/325 mg Tablet ONE (11:38)
== END 2019-09-27 11:50 | disposition home or self-care (01) ==
LOC: ERS 10:17
DX: O99.89 Other specified diseases and conditions complicating pregnancy, childbirth and the puerperium (principal); G89.18 Other acute postprocedural pain; O24.13 Pre-existing type 2 diabetes mellitus, in the puerperium; E11.9 Type 2 diabetes mellitus without complications; O99.285 Endocrine, nutritional and metabolic diseases complicating the puerperium; E03.9 Hypothyroidism, unspecified
CPT/HCPCS: 99283

== ENCOUNTER 2022-02-10 08:21 | Emergency (ER) | payer OTHER ==
[2022-02-10 09:27] LABS: #Eosinphils 0.2 thou/uL (0.0-0.7); #Lymphocytes 3.9 thou/uL (1.20-3.40); #Monocytes 0.7 thou/uL (0.11-0.59); #Neutrophils 7.5 thou/uL (1.40-6.50); %Basophils 0.1 % (0.0-1.0); %Lymphocytes 31.6 % (21.0-51.0); %Monocytes 5.6 % (0.0-10.0); %Neutrophils 60.6 % (42.0-75.0); Hemoglobin 13.5 g/dL (12.0-16.0); Mean Corpuscular HGB CONC 32.7 g/dL (32.0-36.0); Mean Corpuscular Hemoglobin 29.8 pg (27.0-31.0); Mean Corpuscular Volume 91.2 fl (78.0-98.0); Mean Platelet Volume 8.3 fL (7.4-10.4); Platelet Count 207 thou/uL (130-400); RBC Distribution Width 13.1 % (11.5-14.5); Red Blood Cell (RBC) Count 4.53 mill/uL (4.20-5.40); White Blood Cell (WBC) Count 12.4 thou/uL (4.8-10.8)
[2022-02-10 09:52] LABS: ALT (SGPT) 23 U/L (8-55); AST (SGOT) 10 U/L (5-34); Albumin 3.5 g/dL (3.5-5.0); Alkaline Phosphatase 49 U/L (40-110); Anion Gap 10 mmol/L (10-20); BUN (Urea Nitrogen) 16 mg/dL (7.0-18.7); Bilirubin, Total 0.6 mg/dL (0.2-1.2); Calc. Creatinine Clearance 0 mL/min (70-130); Calcium 8.9 mg/dL (7.8-10.44); Carbon Dioxide 24 mmol/L (22-29); Chloride 108 mmol/L (98-107); Estimated GFR 104; Globulin 2.7 g/dL (2.4-3.5); Glucose 110 mg/dL (70-105); Potassium 4.1 mmol/L (3.5-5.1); Protein, Total 6.2 g/dL (6.0-8.3); Sodium 138 mmol/L (136-145)
== END 2022-02-10 12:49 | disposition home or self-care (01) ==
LOC: ERS 08:21
DX: O20.0 Threatened abortion (principal); E11.9 Type 2 diabetes mellitus without complications; E03.9 Hypothyroidism, unspecified; Z79.4 Long term (current) use of insulin
CPT/HCPCS: 36415; 76856; 80053; 84702; 85025; 86850; 86900; 86901

== ENCOUNTER 2022-03-02 22:37 | Emergency (ER) | payer OTHER ==
[2022-03-02 23:37] LABS: #Eosinphils 0.2 thou/uL (0.0-0.7); #Lymphocytes 3.2 thou/uL (1.20-3.40); #Monocytes 0.7 thou/uL (0.11-0.59); #Neutrophils 6.3 thou/uL (1.40-6.50); %Basophils 0.4 % (0.0-1.0); %Eosinophils 2.4 % (0.0-10.0); %Lymphocytes 30.5 % (21.0-51.0); %Monocytes 6.4 % (0.0-10.0); %Neutrophils 60.4 % (42.0-75.0); Hemoglobin 13.6 g/dL (12.0-16.0); Mean Corpuscular Hemoglobin 31.3 pg (27.0-31.0); Mean Platelet Volume 8.8 fL (7.4-10.4); Platelet Count 185 10x3/uL (130-400); RBC Distribution Width 12.6 % (11.5-14.5); Red Blood Cell (RBC) Count 4.35 mill/uL (4.20-5.40); White Blood Cell (WBC) Count 10.5 10x3/uL (4.8-10.8)
[2022-03-03 00:03] LABS: Bilirubin Negative (Negative); Blood, Urine Negative (Negative); Clarity Clear (Clear); Glucose, Urine (Dipstick) Normal (Negative); Ketone, Urine Trace mg/dL (Negative); Leukocyte Negative Leu/uL (Negative); Nitrite Negative (Negative); Protein, Urine (Dipstick) Negative (Neg-Trace); Specific Gravity, Urine 1.027 (1.002-1.036); Urobilinogen 3 mg/dL (Less than 2)
== END 2022-03-03 01:45 | disposition home or self-care (01) ==
LOC: ERS 22:37
DX: O20.0 Threatened abortion (principal); O24.111 Pre-existing type 2 diabetes mellitus, in pregnancy, first trimester; O99.281 Endocrine, nutritional and metabolic diseases complicating pregnancy, first trimester; E03.9 Hypothyroidism, unspecified; Z3A.10 10 weeks gestation of pregnancy
CPT/HCPCS: 36415; 76856; 81003; 85025; 93976

== ENCOUNTER 2022-03-15 00:47 | Emergency (ER) | payer OTHER | END 2022-03-15 01:30 | disposition home or self-care (01) | LOC: ERS 00:47 | DX: O26.851 Spotting complicating pregnancy, first trimester (principal); O24.119 Pre-existing type 2 diabetes mellitus, in pregnancy, unspecified trimester; O99.281 Endocrine, nutritional and metabolic diseases complicating pregnancy, first trimester; E03.9 Hypothyroidism, unspecified; Z3A.01 Less than 8 weeks gestation of pregnancy | CPT/HCPCS: 99283 ==

== ENCOUNTER 2022-05-07 15:15 | Outpatient (CLI) | payer OTHER | END 2022-05-07 15:16 | disposition home or self-care (01) | LOC: BICULT 15:15 | PROVIDERS: ATTEND Family Medicine | DX: O09.892 Supervision of other high risk pregnancies, second trimester (principal) | CPT/HCPCS: 76805 ==

== ENCOUNTER 2024-11-07 01:27 | Emergency (ER) | payer OTHER ==
[2024-11-07] MEDS ORDERED: Ketorolac Tromethamine 30 MG (1 mL) VIAL ONE (02:25)
[2024-11-07] MEDS ORDERED: Ondansetron PF 4 MG/2 ML Vial ONE (02:25)
[2024-11-07 02:57] LABS: #Basophils 0.04 10x3/uL (0.0-0.2); #Eosinophils 0.22 10x3/uL (0.0-0.7); #Monocytes 0.43 10x3/uL (0.11-0.59); #Neutrophils 2.88 10x3/uL (1.40-6.50); %Basophils 0.6 % (0.0-1.0); %Eosinophils 3.2 % (0.0-10.0); %Lymphocytes 47.7 % (21.0-51.0); %Monocytes 6.3 % (0.0-10.0); %Neutrophils 42.1 % (42.0-75.0); Hematocrit 37.0 % (36.0-47.0); Hemoglobin 10.9 g/dL (12.0-16.0); Mean Corpuscular Hemoglobin 20.8 pg (27.0-31.0); Mean Corpuscular Volume 70.6 fL (78.0-98.0); Platelet Count 210 10x3/uL (130-400); Red Blood Cell (RBC) Count 5.24 mill/uL (4.20-5.40); White Blood Cell (WBC) Count 6.85 10x3/uL (4.8-10.8)
[2024-11-07 03:05] LABS: BHCG - Serum Negative (NEGATIVE); Pregs Control Background? CLEAR/WHITE (CLR/WHITE); Pregs Control Bar Appear? YES (CONTROL BAR)
[2024-11-07 03:10] LABS: ALT (SGPT) 25 U/L (Less than 34); AST (SGOT) 20 U/L (11-34); Albumin 4.4 g/dL (3.1-4.5); Alkaline Phosphatase 46 U/L (40-110); Anion Gap 14 mmol/L (10-20); BUN (Urea Nitrogen) 27 mg/dL (7.0-18.7); Bilirubin, Total 0.6 mg/dL (0.3-1.2); Calc. Creatinine Clearance 0 mL/min (70-130); Calcium 8.7 mg/dL (7.8-10.44); Carbon Dioxide 23 mmol/L (22-29); Chloride 109 mmol/L (98-107); Globulin 3.1 g/dL (2.4-3.5); Glucose 72 mg/dL (70-105); Potassium 3.9 mmol/L (3.5-5.1); Sodium 142 mmol/L (136-145)
[2024-11-07 03:22] LABS: Bacteria/HPF None Seen HPF (None Seen); CAUTI Indications for Culture Pelvic or flank pain; Glucose, Urine (Dipstick) Normal (Negative); Leukocyte Negative Leu/uL (Negative); Protein, Urine (Dipstick) Negative (Neg-Trace); RBC/HPF 0-3 HPF (0-3); Specific Gravity, Urine 1.021 (1.002-1.036); WBC/HPF 0-3 HPF (0-3)
[2024-11-07 04:01] LABS: Urine Culture Reflex No No
[2024-11-07] MEDS ORDERED: Iopamidol-370 76% 500 ML MDV (1 ML CHARGE) ONE (12:37)
== END 2024-11-07 04:55 | disposition home or self-care (01) ==
LOC: ERS 01:27
DX: R10.9 Unspecified abdominal pain (principal); E11.9 Type 2 diabetes mellitus without complications; I10 Essential (primary) hypertension
CPT/HCPCS: 74177; 80053; 81001; 83605; 84703; 85025; 96374; 96375; J1885; J2270; J2405; Q9967